=== PATIENT | female | born 1960 | race Caucasian/White ===

== ENCOUNTER 2016-12-20 20:29 | Emergency (ER) | payer OTHER ==
[~2016-12-20] VITALS: Ht 165.1 cm; Wt 89.8 kg
[2016-12-20] MEDS ORDERED: EFFEXOR XR75 MG PO (20:46)
[2016-12-20] MEDS ORDERED: LOVASTATIN40 MG PO (20:46)
[2016-12-20] MEDS ORDERED: [UNRECOGNIZED DRUG - OTHER] PO (20:47)
[2016-12-20] MEDS ORDERED: OMEPRAZOLE40 MG PO (20:47)
[2016-12-20] MEDS ORDERED: ASPIRIN CHEWABL81 MG PO (20:47)
[2016-12-20 21:01] LABS: BASO % 0.4 % (0.0-1.0); EOS # 0.1 10*3/uL (0.0-0.4); EOS % 0.8 % (1.0-4.0); HEMATOCRIT 39.8 % (37.0-47.0); LYMPH # 2.5 10*3/uL (1.3-4.4); LYMPH % 26.9 % (27.0-41.0); MEAN CELL VOLUME 89.8 fl (81.0-99.0); MEAN CORPUSCULAR HGB 29.3 pg (27.0-31.0); MEAN CORPUSCULAR HGB CONC 32.7 g/dl (33.0-37.0); MEAN PLATELET VOLUME 11.2 fl (9.6-12.3); MONO % 10.8 % (3.0-9.0); NEUT # 5.6 10*3/uL (2.3-7.9); NEUT % 60.8 % (47.0-73.0); PLATELET COUNT AUTOMATED 222 10*3/uL (130-400); RED BLOOD COUNT 4.43 10*6/uL (4.10-5.10); RED CELL DISTRI WIDTH 13.5 % (0-14.5); WHITE BLOOD COUNT 9.2 10*3/uL (4.8-10.8)
[2016-12-20 21:17] LABS: ALBUMIN 3.3 gm/dl (3.1-4.5); ALKALINE PHOSPHATASE 74 U/L (45-117); BILIRUBIN, TOTAL 0.4 mg/dl (0.2-1.0); BUN 12 mg/dl (7-24); CARBON DIOXIDE 28 mmol/L (21-32); CHLORIDE 107 mmol/L (98-107); EST GLOM FILT AFRICAN AMERICAN > 60 ml/min; GLUCOSE 104 mg/dL (65-99); MAGNESIUM 1.9 mg/dL (1.5-2.1); POTASSIUM 3.7 mmol/L (3.5-5.1); SGOT/AST 23 IU/L (3-35); SGPT/ALT 38 U/L (12-78); SODIUM 143 mmol/L (136-145); TOTAL PROTEIN 6.7 gm/dL (6.4-8.2)
[2016-12-20 21:18] LABS: CKMB 0.6 ng/ml (0.5-3.6)
[2016-12-20 21:20] LABS: TROPONIN I < 0.015 ng/ml (<0.045)
[2016-12-20 22:28] LABS: BILIRUBIN NEGATIVE (NEGATIVE); BLOOD 2+ (NEGATIVE); CLARITY CLEAR (CLEAR); COLOR YELLOW (YELLOW); GLUCOSE NEGATIVE (NEGATIVE); KETONE NEGATIVE (NEGATIVE); LEUKO ESTERASE TRACE (NEGATIVE); NITRITE NEGATIVE (NEGATIVE); PROTEIN NEGATIVE (NEGATIVE); SPECIFIC GRAVITY <= 1.005 (1.005-1.030)
[2016-12-20 22:35] LABS: BACTERIA 1+
[2016-12-20 22:36] LABS: URINE REFLEX COMMENT YES (NO)
[2016-12-20] MEDS ORDERED: MACROBID100 M1 PO (23:24)
== END 2016-12-20 23:53 | disposition home or self-care (01) ==
LOC: ED 20:29
PROVIDERS: Emergency Medicine Emergency Medical Services
DX: R55 Syncope and collapse (principal); E86.0 Dehydration; N39.0 Urinary tract infection, site not specified; R31.9 Hematuria, unspecified; R42 Dizziness and giddiness; R20.2 Paresthesia of skin; R25.2 Cramp and spasm; Z88.1 Allergy status to other antibiotic agents; Z79.899 Other long term (current) drug therapy; Z79.82 Long term (current) use of aspirin

== ENCOUNTER → 2019-12-20 | Outpatient (CLI) | payer SELFPAY ==
[~2019-12-20] MED LIST: ASPIRIN CHEWABL81 MG PO; EFFEXOR XR75 MG PO; LOVASTATIN40 MG PO; MACROBID100 M1 PO; OMEPRAZOLE40 MG PO; [UNRECOGNIZED DRUG - OTHER] PO
[2019-12-20 19:05] LABS: FREE T4 0.99 ng/dl (0.76-1.46)
[2019-12-20 19:10] LABS: THYROID STIM HORMONE (HS) 0.023 uIU/ml (0.358-4.75)
[2019-12-22 13:08] LABS: THYROGLOBULIN ANTIBODY 71.5 IU/mL (0.0-0.9)
== END | disposition home or self-care (01) ==
LOC: LAB 18:01
PROVIDERS: Internal Medicine Endocrinology, Diabetes & Metabolism
DX: E03.9 Hypothyroidism, unspecified (principal); R73.02 Impaired glucose tolerance (oral)

== ENCOUNTER → 2020-02-03 | Outpatient (CLI) | payer SELFPAY | END | disposition home or self-care (01) | LOC: CARD 09:14 | PROVIDERS: ATTEND Nurse Practitioner Family | DX: I10 Essential (primary) hypertension (principal); R05 Cough; R60.9 Edema, unspecified; R61 Generalized hyperhidrosis ==

== ENCOUNTER → 2020-06-30 | Outpatient (CLI) | payer SELFPAY | END | disposition home or self-care (01) | LOC: RAD 17:18 | PROVIDERS: ATTEND Nurse Practitioner Family | DX: R30.0 Dysuria (principal); M54.5 Low back pain; R31.9 Hematuria, unspecified ==